=== PATIENT | male | born 1980 | race Caucasian/White ===

== ENCOUNTER 2016-11-28 13:55 | Emergency (ER) | payer SELFPAY ==
[~2016-11-28] VITALS: Ht 180.3 cm; Wt 118.0 kg
[~2016-11-28 13:55] MED LIST: NO ROUTINE MEDS; SULF1TAB42 PO
--- OUTSIDE RECORDS SUMMARY | 2016-11-28 13:58 | XMS REPORT | Referral Summary ---
Author Author [facility] Organization [facility] Address Unknown Phone Unavailable Care Team Providers Care Strapper Operator Name Role Phone No PCP, Pt States Primary Care Physician [phone] Encounter VC Date(s): 11/16/14 - 11/16/14 [facility] [address] [place], [place] [address] Discharge Diagnosis: Chronic obstructive pulmonary disease (COPD) Discharge Diagnosis: Acute bronchitis Final: Obstructive chronic bronchitis with acute bronchitis Discharge Disposition: 01-Home or Self Care Attending Physician: Bertin Ervin DO Admitting Physician: Bertin Ervin DO Vital Signs Most recent to 1 oldest [Reference Range]: Temperature Temporal 36.3 degC Artery [36.3-37.8 (11/16/14 3:16 PM) degC] Peripheral Pulse 100 bpm Rate [60-100 bpm] (11/16/14 3:16 PM) Heart Rate Monitored 95 bpm [60-100 bpm] (11/16/14 5:52 PM) Respiratory Rate 20 br/min [14-20 br/min] (11/16/14 5:52 PM) Blood Pressure 139/82 mmHg [90-140/60-90 mmHg] (11/16/14 5:52 PM) Mean Arterial 96 mmHg Pressure, Cuff (11/16/14 5:52 PM) SpO2 95 % (11/16/14 5:52 PM) Problem List Condition Effective Dates Status Health Status Informant Acute Active bronchitis(Confirmed ) Allergies, Adverse Reactions, Alerts No Known Allergies Medications albuterol CFC free 90 mcg/inh inhalation aerosol 1 puffs, Inhalation, QID, as needed for wheezing, use with spacer chamber, # 18 g, 0 Refill(s) Start Date: 11/16/14 Status: Ordered TEGretol QID, 0 Refill(s) Start Date: 11/16/14 Status: Ordered TEGretol QID, 0 Refill(s) Start Date: 11/16/14 Status: Ordered Zantac 150 oral tablet 1 tabs, Oral, BID, Supervising MD Dr. Gayle, # 14 tabs, 0 Refill(s) Start Date: 05/02/14 Stop Date: 05/09/14 Status: Ordered Results Hematology Most recent to 1 oldest [Reference Range]: WBC [4.8-10.8 7.4 10*3/uL 10*3/uL] (11/16/14 4:06 PM) RBC [4.60-6.20 5.31 10*6/uL 10*6/uL] (11/16/14 4:06 PM) Hgb [14.0-18.0 16.0 gm/dL gm/dL] (11/16/14 4:06 PM) Hct [42.0-52.0 %] 49.3 % (11/16/14 4:06 PM) MCV [82.0-99.0 fL] 92.8 fL (11/16/14 4:06 PM) MCH [27.0-32.0 pg] 30.1 pg (11/16/14 4:06 PM) MCHC [32.0-36.0 32.5 gm/dL gm/dL] (11/16/14 4:06 PM) RDW [11.5-14.5 %] 15.0 % *HI* (11/16/14 4:06 PM) Platelet [150-400 181 10*3/uL 10*3/uL] (11/16/14 4:06 PM) MPV [9.4-12.3 fL] 10.6 fL (11/16/14 4:06 PM) Immature 0.3 % Granulocytes (11/16/14 4:06 PM) [0.0-1.0 %] Neutrophils [51-75 71 % %] (11/16/14 4:06 PM) Lymphocytes [20-46 17 % %] *LOW* (11/16/14 4:06 PM) Monocytes [4-11 %] 7 % (11/16/14 4:06 PM) Eosinophils [0-4 %] 4 % (11/16/14 4:06 PM) Basophils [0-2 %] 0 % (11/16/14 4:06 PM) Neutro Absolute 5.24 THOUS [1.90-7.00 THOUS] (11/16/14 4:06 PM) Lymph Absolute 1.25 THOUS [0.80-3.30 THOUS] (11/16/14 4:06 PM) Hardeman Absolute 0.54 THOUS [0.30-1.00 THOUS] (11/16/14 4:06 PM) Eos Absolute 0.29 THOUS [0.00-0.50 THOUS] (11/16/14 4:06 PM) Baso Absolute 0.02 THOUS [0.00-0.20 THOUS] (11/16/14 4:06 PM) Chemistry Most recent to 1 oldest [Reference Range]: Sodium Lvl [136-144 138 mEq/L mEq/L] (11/16/14 4:07 PM) Potassium Lvl 4.2 mEq/L 1 [3.6-5.1 mEq/L] (11/16/14 4:07 PM) Chloride [99-109 103 mEq/L mEq/L] (11/16/14 4:07 PM) CO2 [22-32 mEq/L] 24 mEq/L (11/16/14 4:07 PM) AGAP [3-20] 11 (11/16/14 4:07 PM) BUN [4-20 mg/dL] 12 mg/dL (11/16/14 4:07 PM) Glucose Lvl [70-100 109 mg/dL mg/dL] *HI* (11/16/14 4:07 PM) Creatinine Lvl 1.28 mg/dL [0.64-1.27 mg/dL] *HI* (11/16/14 4:07 PM) eGFR [>60] >60 2 (11/16/14 4:07 PM) Calcium Lvl 8.9 mg/dL [8.6-10.0 mg/dL] (11/16/14 4:07 PM) Albumin Lvl [3.5-4.8 4.1 gm/dL gm/dL] (11/16/14 4:07 PM) Total Protein 6.5 gm/dL [6.1-7.9 gm/dL] (11/16/14 4:07 PM) Globulin [1.9-4.3 2.4 gm/dL gm/dL] (11/16/14 4:07 PM) ALT [17-63 U/L] 43 U/L (11/16/14 4:07 PM) AST [15-41 U/L] 63 U/L *HI* (11/16/14 4:07 PM) Alk Phos [26-104 83 U/L U/L] (11/16/14 4:07 PM) Bili Total [0.2-1.2 1.4 mg/dL 3 mg/dL] *HI* (11/16/14 4:07 PM) Troponin [<0.06 <0.05 ng/mL ng/mL] (11/16/14 4:07 PM) 1Result Comment: Hemolyzed specimen. The following tests may be affected: ALT, AST, Ammonia, Iron, Potassium, LDH, Amylase, CPK, and Total Bilirubin. 2Result Comment: Multiply eGFR results by 1.21 for race. 3Result Comment: Naproxen, specifically the metabolite O-desmethylnaproxen, may cause spurious elevation in Total Bilirubin levels. Urinalysis Most recent to 1 oldest [Reference Range]: Type Venous (11/16/14 4:14 PM) Immunizations Vaccine Date Refusal Reason tetanus-diphth toxoids (Td) adult/adol 02/18/00 Procedures No data available for this section Social History Social History Type Response Smoking Status Current every day smoker; Type: Cigarettes; Tobacco use per day: More than 1 pack Assessment and Plan No data available for this section
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
[2016-11-28 14:00] VITALS: Ht 180.3 cm; Wt 118.0 kg
--- NOTE | 2016-11-28 14:20 | NUR ---
TRAY BARAHONA WITH PT
--- OUTSIDE RECORDS SUMMARY | 2016-11-28 14:21 | XMS REPORT | Continuity of Care Document ---
Author Author [facility] Organization [facility] Address Unknown Phone Unavailable Allergies Active Description [...] Osvaldo P F E880.9 FALL ON STAIR/STEP [facility] Procedures Code Description Performed By Performed On [...] Status Pt. Type Provider Facility Loc./Unit Complaint [id number] 03/17/2013 09:12:00 2012 10:13:00 DIS Emergency Kiah VINCENT, Lazaro Oseguera [facility] on [address] [place] [id number] 01/27/2013 03:33:00 2012 04:11:00 DIS Emergency Aishwarya SCHAFFER, Dustin [facility] on [address] [id number] 08/06/2012 19:54:00 2012 21:44:00 DIS Emergency Nalini SCHAFFER, Alfonzo Gonzales [facility] on [address] [place] [id number] 02/27/2012 05:54:00 2011 09:55:00 DIS Emergency Roldan SCHAFFER, Bebo Navarro [facility] on [address] [place] [id number] 03/07/2013 01:45:00 Document Registration
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
[2016-11-28] MEDS ORDERED: HYDR-4246 PO (16:14)
[2016-11-28 16:40] VITALS: BP 141/86; PULSE 95; RESP 18; TEMP 97.2; O2SAT 95
--- NOTE | 2016-11-29 07:54 | DI ---
Indication: ITS.REASON: right knee pain after trauma PROCEDURE: CT LOWER EXTREMITY RT W/O CONT: Encounter: Initial Comparison: None Technique: Axial noncontrast CT imaging of the right knee was performed with coronal and sagittal two-dimensional reformats. Three-dimensional surface shaded volume rendered imaging was also created and reviewed. Automated Exposure Control and Iterative Reconstruction dose reducing techniques were utilized. Findings: No acute fracture identified. 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 Probable old fibular healed fracture. Incidental note is made of an os fabella. No gross joint effusion. Muscular attenuation is within normal limits. Impression: No acute osseous abnormality. There is a preliminary report by [facility]. .
--- NOTE | 2016-11-29 07:58 | DI ---
Indication: ITS.REASON: right knee pain after trauma PROCEDURE: KNEE RIGHT 3 VIEWS: Encounter: Initial Comparison: CT from the same date Findings: There is no acute fracture, dislocation or malalignment identified. There is an artifactual vertically oriented lucency seen projecting through the lateral tibial plateau on the frontal view. Impression: No acute osseous abnormality. .
== END 2016-11-28 16:40 | disposition home or self-care (01) ==
LOC: ED 13:55
DX: M25.561 Pain in right knee (principal); V80.018A Animal-rider injured by fall from or being thrown from other animal in noncollision accident, initial encounter; Y93.I9 Activity, other involving external motion; Y92.89 Other specified places as the place of occurrence of the external cause; Y99.8 Other external cause status